=== PATIENT | female | born 1975 | race Caucasian/White ===

== ENCOUNTER 2024-01-23 12:07 | Emergency (ER) | payer MEDICAID, SELFPAY ==
[2024-01-23 12:08] VITALS: BP 167/96; PULSE 101; RESP 18; TEMP 36.8; O2SAT 100; BMI 24.2
--- NOTE | 2024-01-23 13:21 | EKG12_ITS ---
Test Reason : Blood Pressure : */* mmHG Vent. Rate : 93 BPM Atrial Rate : 93 BPM P-R Int : 138 ms QRS Dur : 80 ms QT Int : 370 ms P-R-T Axes : 77 42 50 degrees QTcB Int : 460 ms Normal sinus rhythm Normal ECG Confirmed by Serg Simmons ([id number]), staff editor NACHO MCGILL ([id number]) on 01/25/2024 5:55:02 AM Referred By: Confirmed By: Serg Simmons
[2024-01-23] MEDS: LORazepam 2 MG/ML Syringe 1 MG IV (13:35)
[2024-01-23 13:48] LABS: Absolute Neutrophil Count 6.7 X10^3/uL (2.0-7.7); Basophil# 0.09 X10^3/uL; Eosinophil# 0.08 X10^3/uL; Eosinophils% 0.9 % (0-5); Hematocrit 44.4 % (37-47); Hemoglobin 14.6 g/dL (12.0-15.0); Lymphocyte % 18.6 % (19-41); Mean Corp Hgb Conc 32.9 g/dL (32-36); Mean Corpuscular Hgb 27.9 pg (27.0-32.0); Mean Corpuscular Volume 84.9 fL (81-99); Mean Platelet Vol. 8.9 fl (6.2-12.0); Monocyte# 0.59 X10^3/uL; Monocyte% 6.4 % (0-10); NRBC Flagged by Analyzer 0 % (0-5); Neutrophil # 6.66 X10^3/uL (2.7-7.7); Neutrophil % 72.8 % (47-70); Platelet Count 437 K/mm3 (150-450); RBC Distribution Width CV 13.2 % (11.6-14.6); RBC Distribution Width SD 40.9 fl (35.1-43.9); Red Blood Count 5.23 M/mm3 (4.2-5.4); White Blood Count 9.2 K/mm3 (4.4-11.0)
[2024-01-23 13:50] LABS: Mucous, Urine 0 SEEN /hpf (<or=2+); Red Blood Cells-Urine 0 SEEN /hpf (0-5); White Blood Cells 0 SEEN /hpf (0-5)
[2024-01-23 13:53] LABS: Color, Urine Yellow (Yellow); Glucose, Dipstick 100 mg/dl (Normal); Ketone-Dipstick 5 mg/dl (Negative); Leukocyte Esterase-Dipstick Negative /ul (Negative); Nitrite-Dipstick Negative (Negative); Occult Blood-Urine Negative /ul (Negative); Protein-Dipstick 30 mg/dl (Negative); Specific Gravity, Urine 1.015 (1.002-1.030); Urine Bilirubin Dipstick Negative (Negative); Urine Clarity Sl. Cloudy (Clear); Urine Urobilinogen Normal (Normal)
[2024-01-23 14:01] LABS: Internal QC Validated? YES +Cl - CLEAR BKGD; Pregnancy, Serum, hCG Quali. NEGATIVE Negative
[2024-01-23 14:02] LABS: Alcohol, Blood (Medical)-Serum < 3.0 mg/dL
[2024-01-23 14:04] LABS: Bacteria 1+ /hpf (None Seen); Squamous Epithelial Cells - UA 0-5 SEEN /hpf (5-10)
[2024-01-23 14:07] VITALS: PULSE 134; RESP 22
[2024-01-23 14:08] LABS: ALB/GLOB Ratio 0.8 RATIO (0.9-2.4); AST(SGOT) 15 U/L (15-37); Alanine Aminotransfer ALT/SGPT 19 U/L (13-56); Albumin, Serum 3.7 g/dL (3.2-5.0); Alkaline Phosphatase 128 U/L (45-117); Anion Gap 4 (5-15); BUN 9 mg/dL (7-18); BUN/Creat Ratio 9.7 RATIO (10-20); Calcium,Total 9.5 mg/dL (8.5-10.1); Chloride 102 mmol/L (98-107); Creatinine, Serum 0.93 mg/dL (0.55-1.02); EST Glomerular Filtration Rate 69 mL/min (>60); Est Glom Filt Rate - Afr Amer 83 mL/min (>60); Estimated Creatinine Clearance 59.78 ml/min; Globulin 4.9 g/dL (2.2-4.2); Glucose 187 mg/dL (74-106); Potassium 3.3 mmol/L (3.5-5.1); Protein, Total 8.6 g/dL (6.4-8.2); Sodium Level 136 mmol/L (136-145)
[2024-01-23 15:02] LABS: Amphetamine Urine VISTA POSITIVE (<1000 ng/mL); Barbiturate Urine VISTA NEGATIVE (< 200 ng/mL); Benzodiazepine Urine VISTA NEGATIVE (< 200 ng/mL); Cocaine Urine VISTA NEGATIVE (< 300 ng/mL); Ecstacy Urine VISTA NEGATIVE (< 500 ng/mL); Methadone Urine VISTA NEGATIVE (< 300 ng/mL); PCP Urine VISTA NEGATIVE (< 25 ng/mL); THC Urine VISTA POSITIVE (< 50 ng/mL); Vista UDS pH Range 7
--- NOTE | 2024-01-23 15:36 | EX.ED.DYSGE1 ---
HPI History of Present Illness Chief Complaint: General Illness Narrative Narrative: Patient is a 48-year-old female with past medical history of substance abuse who presents to the emergency department with a chief complaint of spasms. Patient states that she took Vivitrol from a friend and complained of some involuntary movements. She stopped using heroin in November but used meth yesterday. Patient states that she is going through opiate withdrawal and feels unwell. Patient states that she has an appointment coming up to get on Vivitrol however given her symptoms here today she came to the emergency department for evaluation management. PFSH PFSH Home Medications ?Medication ?Instructions ?Recorded ?Last Taken ?Type ondansetron 4 mg disintegrating 4 mg PO Q6H PRN nausea and 01/23/24 Unknown Rx tablet vomiting #20 tabs Allergy/AdvReac Type Severity Reaction Status Date / Time No Known Allergies Allergy Verified 01/23/24 12:11 Social History Smoking Status: Current every day smoker tobacco type: cigarettes ROS ROS ED ROS Narrative Constitutional: Complains of chills and night fevers denies headaches, lightness, dizziness Eyes: Denies change in vision double vision blurry vision Cardiovascular: Denies chest pain or palpitations Respiratory: Denies coughing wheezing shortness of breath Abdomen: Complains of nausea and dry heaving denies any abdominal pain or diarrhea : Denies any urinary symptoms Neurological: Denies numbness, weakness, tingling Skin: Denies rashes or lesions EXAM Physical Exam Narrative Exam Narrative: General: Patient was lying in bed did appear to be uncomfortable overall Head: Atraumatic, normocephalic Eyes: PERRL bilaterally, EOMI bladder, no conjunctival injection noted Neck: Soft, supple, trachea midline Cardiovascular: Patient was tachycardic with a regular rhythm no murmurs gallops rubs are noted Respiratory: Clear to auscultation bilaterally no rales rhonchi or wheezes noted Abdomen: Soft, nondistended, nontender to palpation, bowel sounds present x 4 Extremities: +5/5 strength noted in the bilateral upper and lower extremities, radial pulses +2/4 in the bilateral upper extremities Neurological: Patient following commands knew that she was at [facility] year is 2023. NIH is 0 GCS 15 Skin: Warm, dry, intact Const Vital Signs: 01/23/24 12:08 01/23/24 14:07 Temperature 98.2 F Temperature Source Oral Pulse Rate 101 H 134 H Respiratory Rate 18 22 H Blood Pressure 167/96 H Blood Pressure Mean 119 Pulse Ox 100 Oxygen Delivery Method Room Air MDM MDM MDM Narrative Medical decision making narrative: Patient is a 48-year-old female who presents to the emergency department the chief complaint of opiate withdrawal. Patient will have a workup performed here on the differential diagnose includes but not limited to opiate withdrawal, electrolyte abnormality. Patient will be given milligram of IV Ativan. Patient's CBC reviewed and showed no evidence leukocytosis white blood count normal at 9.2, hemoglobin 14.6, platelet count normal at 437. Patient sodium normal 136, potassium was 3.3, creatinine normal at 0.93. Patient's AST and ALT were 15 and 19 respectively. Patient's urinalysis showed no evidence of infection. Patient's drug screen was positive for amphetamines and cannabis alcohol level is less than 3. Patient's EKG reviewed and independently interpreted by myself which showed sinus rhythm with a rate of 93 bpm. On reevaluation of the patient I did offer her admission to the hospital for opiate withdrawal detox and she states that she will not stay in the hospital she wants to go home at this point time. I advised her that the better option would be to stay here for help to help her get through this and she states that I am almost through this. Patient states that she is going home and she is not staying here. Patient will be given a prescription for Zofran. She is advised to follow-up at her appointment in the outpatient setting for her opiate program. She is encouraged return with worsening symptoms and concerns. All question concerns answered she was discharged home in stable condition. Lab Data Labs: Laboratory Results - last 24 hr 01/23/24 01/23/24 13:42 13:46 WBC 9.2 RBC 5.23 Hgb 14.6 Hct 44.4 MCV 84.9 MCH 27.9 MCHC 32.9 RDW Std Deviation 40.9 RDW Coeff of Karen 13.2 Plt Count 437 MPV 8.9 Immature Gran % (Auto) 0.300 Neut % (Auto) 72.8 H Lymph % (Auto) 18.[address] [place] % (Auto) 6.4 Eos % (Auto) 0.9 Baso % (Auto) 1.0 Absolute Neuts (auto) 6.7 Absolute Lymphs (auto) 1.70 Nucleated RBC % 0 Sodium 136 Potassium 3.3 L Chloride 102 Carbon Dioxide 29.0 Anion Gap 4 L BUN 9 Creatinine 0.93 Estim Creat Clear Calc 59.78 Est GFR (MDRD) Af Amer 83 Est GFR (MDRD) Non-Af 69 BUN/Creatinine Ratio 9.7 L Glucose 187 H Calcium 9.5 Total Bilirubin 0.40 AST 15 ALT 19 Alkaline Phosphatase 128 H Total Protein 8.6 H Albumin 3.7 Globulin 4.9 H Albumin/Globulin Ratio 0.8 L Serum , Qual NEGATIVE Urine Color Yellow Urine Clarity Sl. Cloudy Urine pH 8.0 Ur Specific [place] 1.015 Urine Protein 30 H Urine Glucose (UA) 100 H Urine Ketones 5 H Urine Occult Blood Negative Urine Nitrite Negative Urine Bilirubin Negative Urine Urobilinogen Normal Ur Leukocyte Esterase Negative Urine RBC 0 SEEN Urine WBC 0 SEEN Ur Squamous Epith Cells 0-5 SEEN Urine Bacteria 1+ Urine Mucus 0 SEEN Urine Opiates Screen NEGATIVE Urine Methadone Screen NEGATIVE Ur Barbiturates Screen NEGATIVE Ur Phencyclidine Scrn NEGATIVE Ur Amphetamines Screen POSITIVE H MDMA (Ecstasy) Screen NEGATIVE U Benzodiazepines Scrn NEGATIVE Urine Cocaine Screen NEGATIVE U Cannabinoids Screen POSITIVE H Ur Drug Screen Comment Ethyl Alcohol < 3.0 Discharge Plan Triage Chief Complaint: General Illness ED Provider: Rogelio Ann Dx/Rx/DC Orders Prescriptions: New ondansetron 4 mg tablet,disintegrating 4 mg PO Q6H PRN (Reason: nausea and vomiting) Qty: 20 0RF Primary Care Provider: Care Physician,No Primary Referrals: Care Physician,No Primary [Primary Care Provider] - Esther Amato Stu, DO [[facility]] - Activity Restrictions/Additional Instructions: Use Zofran as prescribed. Follow-up with your doctor for your medication. Return with worsening symptoms or other concerns. You were referred to a primary care physician follow-up with them as well. Print Language: Ukrainian Disposition Disposition: Home, Self Care
--- NOTE | 2024-01-23 15:40 | ED.RN ---
this Rn witnessed pt. walking out of facility with boyfriend. pt. did not have a PIV
== END 2024-01-23 15:49 | disposition home or self-care (01) ==
PROVIDERS: Emergency Provider Emergency Medicine; Visit Provider Emergency Medicine
DX: F11.13 Opioid abuse with withdrawal (principal); F17.210 Nicotine dependence, cigarettes, uncomplicated
CPT/HCPCS: 36415; 80053; 80307; 81001; 82077; 84703; 85025; 93005; 96374; 99282